=== PATIENT | male | born 1980 ===

== ENCOUNTER 2018-09-07 12:26 | Emergency (ER) | payer MEDICAID ==
--- NOTE | 2018-09-07 12:59 | C.PDOC ---
History Of Present Illness Patient is a 38 yr old male who is c/o flu-like symptoms throughout the week and also c/o pain under his right eye since yesterday. Pt states he has had no energy and has been very stuffy (nasal congestion) thoughout the whole week. He states he has felt feverish the whole week but didn't check his temperature at home. Pt did not get a flu shot this yr. Pt did have a cough a few days ago but that is better now. Pt also w/ a sore throat a couple of days ago but that's improved. The pain located at his right inferior orbit does radiate inferiorly to the maxillary sinus area. No drainage of pus from his right eye and did not wake up with crust at right eye (and eyelids not stuck together upon wakening). Pt has been taking Tylenol throughout the week w/o much effectiveness. Did not take Tylenol today. PMD: None / Time Seen by Provider: 09/07/18 12:41 Chief Complaint (Nursing): Flu-like Symptoms History Per: Patient History/Exam Limitations: no limitations Onset/Duration Of Symptoms: Days Current Symptoms Are (Timing): Still Present Past Medical History Reviewed: Historical Data, Nursing Documentation, Vital Signs Vital Signs: Last Vital Signs Temp 98.1 F 09/07/18 12:34 Pulse 87 09/07/18 12:34 Resp 20 09/07/18 12:34 BP 120/82 09/07/18 12:34 Pulse Ox 99 09/07/18 12:34 - Medical History PMH: Pneumonia Other PMH: Headaches Family History: States: Diabetes, Other Other Family History: Cancer - Social History Hx Tobacco Use: Yes Hx Alcohol Use: No Hx Substance Use: No Review Of Systems Except As Marked, All Systems Reviewed And Found Negative. Constitutional: Positive for: Fever Eyes: Positive for: Pain Cardiovascular: Negative for: Chest Pain Respiratory: Positive for: Cough Gastrointestinal: Negative for: Vomiting Neurological: Positive for: Weakness Physical Exam - Physical Exam Appears: Well, Non-toxic, Toxic Skin: Other (erythema to right lower periorbital area) Head: Atraumatic Eye(s): bilateral: PERRL, EOMI, right: Eyelid Inflammation (lower eyelid inflamed), Other ((+) right lower periorbital edema and right inf bony orbital rim is very tender to touch) Ear(s): Bilateral: Normal Nose: Other ((+) edema of nasal mucosa) Oral Mucosa: Moist Tongue: Normal Appearing Lips: Normal Appearing Teeth: Normal Dentition Gingiva: Normal Appearing Throat: Normal Neck: Normal Lymphatic: Deferred Chest: Symmetrical Cardiovascular: Rhythm Regular Respiratory: Normal Breath Sounds, No Rales, No Rhonchi, No Wheezing Gastrointestinal/Abdominal: Normal Exam, Bowel Sounds, Soft, No Tenderness Rectal: Deferred Back: Normal Inspection Extremity: Normal ROM Extremity: Bilateral: Normal ROM Pulses: Left Radial: Normal, Right Radial: Normal Neurological/Psych: Oriented x3, Normal Motor ED Course And Treatment - Laboratory Results Result Diagrams: 09/07/18 13:06 09/07/18 13:06 O2 Sat by Pulse Oximetry: 99 Medical Decision Making Medical Decision Making: Initial Impression: Right orbital swelling/pain. Differential diagnosis includes but is not limited to: periorbital cellulitis, orbital cellulitis, sinusitis, influenza Initial Plan: Will get labs and check CT Disposition Counseled Patient/Family Regarding: Studies Performed, Diagnosis, Need For Followup, Rx Given - Disposition Referrals: Kunal Peters MD [Staff Provider] - Disposition: HOME/ ROUTINE Disposition Time: 14:56 Condition: STABLE Additional Instructions: Mr. Batista, thank you for letting us take care of you today. Return to the ER if your symptoms worsen, or if any problems. Take the medication listed below as prescribed. Follow up with the [facility] doctor (Dr. Peters). His phone number is listed below to make an appointment. Prescriptions: Amoxicillin/Clavulanate [Augmentin 875 MG-125 MG] 1 tab PO BID #20 tab Ibuprofen [Motrin Tab] 1 tab PO TID PRN #30 tab PRN Reason: Pain, Moderate (4-7) Instructions: Sinusitis in Adults Forms: [employer] (Maori) Print Language: GHANAIAN - POA Present On Arrival: None - Clinical Impression Clinical Impression: Sinusitis, acute
[2018-09-07 13:07] VITALS: RESP 20
[2018-09-07 13:13] LABS: BASO # 0.1 K/uL (0.0-0.2); EOS # 0.4 K/uL (0.0-0.7); EOS % 5.2 % (0.0-4.0); HEMOGLOBIN 15.9 g/dL (12.0-18.0); LYMPH # 1.9 K/uL (1.0-4.3); LYMPH % 25.8 % (20.0-40.0); MEAN CELL VOLUME 81.5 fL (80.0-94.0); MEAN CORPUSCULAR HEMOGLOBIN 27.2 pg (27.0-31.0); MEAN CORPUSCULAR HGB CONC 33.4 g/dL (33.0-37.0); MEAN PLATELET VOLUME 8.7 fL (7.2-11.7); MONO # 0.9 K/uL (0.0-0.8); MONO % 12.9 % (0.0-10.0); NEUT % 55.1 % (50.0-75.0); RBC 5.82 Mil/uL (4.40-5.90); WHITE BLOOD COUNT 7.3 K/uL (4.8-10.8)
[2018-09-07 13:26] LABS: ALB/GLOB RATIO 1.2 (1.0-2.1); ALBUMIN 4.5 g/dL (3.5-5.0); ALT/SGPT 27 U/L (21-72); AST/SGOT 30 U/L (17-59); BLOOD UREA NITROGEN 9 mg/dL (9-20); CALCIUM 9.3 mg/dl (8.6-10.4); GFR NON-AFRICAN AMERICAN > 60
[2018-09-07] MEDS ORDERED: Iodixanol 320 MG/ML 100 ML BOTTLE IV ONE (13:46)
--- NOTE | 2018-09-07 14:51 | CT ---
Date of service: 09/07/2018 PROCEDURE: CT ORBITS WITH CONTRAST. HISTORY: Rt periobit edema;r/o orbit celluitis vs sinusitis COMPARISON: None available. TECHNIQUE: Following administration of intravenous iodinated contrast, axial CT images of the orbits were obtained. Coronal and sagittal reformats were generated. Intravenous contrast dose: 100 mL Visipaque Radiation dose: Total exam DLP = 564.76 mGy-cm. This CT exam was performed using one or more of the following dose reduction techniques: Automated exposure control, adjustment of the mA and/or kV according to patient size, and/or use of iterative reconstruction technique. FINDINGS: RIGHT ORBIT: RIGHT BONY ORBIT: Normal. RIGHT INTRAORBITAL STRUCTURES: Globe: Normal. Extraocular muscles: Normal. Post septal space: Normal. Optic Nerve: Normal. Lacrimal Apparatus: Normal. RIGHT PRESEPTAL SOFT TISSUES: There is mild infraorbital and pre maxillary. LEFT ORBIT: LEFT BONY ORBIT: Normal. LEFT INTRAORBITAL STRUCTURES: Globe: Normal. Extraocular muscles: Normal. Post septal space: Normal. Optic Nerve: Normal. Lacrimal Apparatus: Normal. LEFT PRESEPTAL SOFT TISSUES: Normal. OTHER: There is moderate polypoid mucosal thickening in the left maxillary sinus with aerosolized secretions, moderate mucosal thickening in the ethmoid air cells and mild polypoid mucosal thickening in the left frontal and left sphenoid sinuses. There is also mild polypoid mucosal thickening in the right maxillary sinus. IMPRESSION: 1. Mild right infraorbital and pre maxillary soft tissue swelling which may represent periorbital cellulitis in the appropriate clinical setting. No evidence for postseptal orbital cellulitis. Mild chronic right maxillary sinusitis. 2. Acute and/chronic left maxillary, ethmoid and frontal sinusitis in ostiomeatal obstruction pattern.
[2018-09-07] MEDS ORDERED: Amoxicillin-Clav 875-125 mg Tab PO STA (14:57)
[2018-09-07] MEDS ORDERED: Amoxicillin-Clav 875-125 mg Tab PO ONE (15:12)
[2018-09-07 15:20] VITALS: BP 136/85; PULSE 85; TEMP 98.3; O2SAT 98
== END 2018-09-07 15:18 | disposition home or self-care (01) ==
LOC: C.ER 12:26 → MERGE 12:26 → C.ER 15:18
DX: J01.90 Acute sinusitis, unspecified (principal); Z72.0 Tobacco use
CPT/HCPCS: 70481; 80053; 85025; 87804; 99284; Q9967

== ENCOUNTER 2018-09-08 13:08 | Emergency (ER) | payer MEDICAID ==
[2018-09-08 13:08] VITALS: BMI 30.1
[2018-09-08 13:25] VITALS: RESP 18; TEMP 98.1
[2018-09-08] MEDS ORDERED: Sodium Chloride 0.9% 1,000 ML IV ONE (14:31)
[2018-09-08] MEDS ORDERED: Piperacill/Tazo 4.5gm in Dex 4.5 GM/100 ML BAG IVPB STA (14:32)
[2018-09-08] MEDS ORDERED: Vancomycin 1 gm/NS 200 ml 1 GM/200 ML BAG IVPB STA (14:32)
--- NOTE | 2018-09-08 14:34 | C.PDOC ---
History Of Present Illness 38 yo male w/o significant PMhx come in for evaluation of Right side eye pain associated with periorbital swelling and redness gradually developed for past 3 days. Noted some yellow/greenish discharge. Pt admits, was seen here yesterday, received on Rx: Augmentin, denies taking yet. Otherwise, pt denies fever, chills, headache, dizziness, blurry vision, pain on eye movement, denies neck pain, drooling, toothache, earache, denies contact use, denies known eye trauma or injury, FB sensation, CP, SOB, cough, denies any other active complaints. Ambulate to Ed, not in any apparent distress. Time Seen by Provider: 09/08/18 14:16 Chief Complaint (Nursing): Eye Problem History Per: Patient Past Medical History Reviewed: Historical Data, Nursing Documentation, Vital Signs Vital Signs: Last Vital Signs Temp 98.1 F 09/08/18 13:24 Pulse 89 09/08/18 13:24 Resp 18 09/08/18 13:24 BP 112/79 09/08/18 13:24 Pulse Ox 97 09/08/18 13:24 - Medical History PMH: No Chronic Diseases, Pneumonia Denies: Chronic Kidney Disease Surgical History: No Surg Hx - [facility] Procedures INTRODUCE OF OTH THERAP SUBST INTO RESP TRACT, VIA OPENING (08/02/17) Family History: States: Diabetes Denies: CAD - Social History Hx Tobacco Use: Yes Hx Alcohol Use: Yes Hx Substance Use: Yes - Immunization History Hx Tetanus Toxoid Vaccination: Yes Hx Influenza Vaccination: No Hx Pneumococcal Vaccination: No Review Of Systems Except As Marked, All Systems Reviewed And Found Negative. Constitutional: Negative for: Fever, Chills Eyes: Positive for: Eyelid Inflammation, Redness. Negative for: Vision Change ENT: Negative for: Ear Discharge, Nose Discharge, Nose Congestion, Mouth Swelling Cardiovascular: Negative for: Chest Pain Respiratory: Negative for: Cough, Shortness of Breath, Wheezing Gastrointestinal: Negative for: Nausea, Vomiting, Abdominal Pain Genitourinary: Negative for: Dysuria Musculoskeletal: Negative for: Neck Pain, Back Pain Skin: Negative for: Rash Neurological: Negative for: Weakness, Numbness, Altered Mental Status, Dizziness Physical Exam - Physical Exam Appears: Well, Non-toxic, No Acute Distress Skin: Normal Color, Warm Head: Normacephalic Eye(s): bilateral: PERRL, EOMI (no pain or limitation on extraocular movemnet B/L), right: Other (mod tenderness with palpable induration inf lacrimal canal with extensive periorbital edema and erythema, scant greenish discharge noted.) Ear(s): Bilateral: Normal Nose: No Flaring, No Discharge Oral Mucosa: Moist Tongue: Normal Appearing Lips: Normal Appearing Teeth: No Tender To Palpation Gingiva: No Abscess Throat: No Erythema, No Drooling Neck: Trachea Midline, Supple Cardiovascular: Rhythm Regular, No Murmur, No JVD Respiratory: No Decreased Breath Sounds, No Accessory Muscle Use, No Stridor, No Wheezing Gastrointestinal/Abdominal: Soft, No Tenderness, No Distention, No Guarding Extremity: Normal ROM, No Deformity, No Swelling Neurological/Psych: Oriented x3, Normal Speech ED Course And Treatment - Laboratory Results Result Diagrams: 09/08/18 14:53 09/08/18 14:53 Lab Interpretation: No Acute Changes O2 Sat by Pulse Oximetry: 97 Pulse Ox Interpretation: Normal - CT Scan/US CT Right orbit Other Rad Studies (CT/US): Radiology Report Reviewed CT/US Interpretation: Dictator : Marnie Andersen MD. Wharf Tender Helper : Public Weigher : Marnie Andersen MD. Approver2 : Report Date : 09/07/2018 14:25:08. My Comment : . Date of service: 09/07/2018. PROCEDURE: CT ORBITS WITH CONTRAST. HISTORY: Rt periobit edema;r/o orbit celluitis vs sinusitis. COMPARISON: None available. TECHNIQUE: Following administration of intravenous iodinated contrast, axial CT images of the orbits were obtained. Coronal and sagittal reformats were generated. Intravenous contrast dose: 100 mL Visipaque. Radiation dose: Total exam DLP = 564.76 mGy-cm. This CT exam was performed using one or more of the following dose reduction techniques: Automated exposure control, adjustment of the mA and/or kV according to patient size, and/or use of iterative reconstruction technique. FINDINGS: RIGHT ORBIT: RIGHT BONY ORBIT: Normal. RIGHT INTRAORBITAL STRUCTURES: Globe: Normal. Extraocular muscles: Normal. Post septal space: Normal. Optic Nerve: Normal. Lacrimal Apparatus: Normal. RIGHT PRESEPTAL SOFT TISSUES: There is mild infraorbital and pre maxillary. LEFT ORBIT: LEFT BONY ORBIT: Normal. LEFT IN TRAORBITAL STRUCTURES: Globe: Normal. Extraocular muscles: Normal. Post septal space: Normal. Optic Nerve: Normal. Lacrimal Apparatus: Normal. LEFT PRESEPTAL SOFT TISSUES: Normal. OTHER: There is moderate polypoid mucosal thickening in the left maxillary sinus with aerosolized secretions, moderate mucosal thickening in the ethmoid air cells and mild polypoid mucosal thickening in the left frontal and left sphenoid sinuses. There is also mild polypoid mucosal thickening in the right maxillary sinus. IMPRESSION: 1. Mild right infraorbital and pre maxillary soft tissue swelling which may represent periorbital cellulitis in the appropriate clinical setting. No evidence for postseptal orbital cellulitis. Mild chronic right maxillary sinusitis. 2. Acute and/chronic left maxillary, ethmoid and frontal sinusitis in ostiomeatal obstruction pattern. Progress Note: Case discussed with Opht , results of blood work and CT Right orbit from 09/07/18 review, recommend discharge with outpt f/u now. Pt was OBS in ED for 3 hours and reports moderate improvement in sx. on re-eval, pt is afebrile, hemodynamicaly stable. Non-toxic, tolerate Po well in ED. Right eye: mild improvement periorbital edema and erythema. No pain or limitation on extraocular movement. ENT: no acute findings. neck: Supple, (-) carodid bruits B/L. Lungs: CTA B/L, BS equal B/L. neurologicaly intact. Blood work review and appears without acute abnormalities, no acute leukocytosis or left shift. Pt rceived Zosyn vanco today. Blood cx-pending. Pt has clinical findings c/w Right periorbital celluliits. Pt advised to F/U with now for further evaluation. Continue antibiotic as intiated yesterday ( AUgmentin). return if any new changes. Disposition Counseled Patient/Family Regarding: Studies Performed, Diagnosis, Need For Followup, Rx Given - Disposition Referrals: Floyd Weaver [Staff Provider] - Disposition: HOME/ ROUTINE Disposition Time: 14:34 Condition: STABLE Additional Instructions: FOLLOW UP WITH NOW FOR FURTHER EVALUATION AND TREATMENT Take antibiotic as initiated yesterday ( Augmentin) Take medication as prescribed Return to ED at any time if any worsening or new changes. Prescriptions: Prednisone [Deltasone] 60 mg PO DAILY #9 tablet Instructions: Orbital Cellulitis Forms: [employer] (Turkmen) - Clinical Impression Clinical Impression: Periorbital cellulitis of right eye
[2018-09-08] MEDS ORDERED: Piperacillin/Tazobact 3.375 gm 0 ML IVPB ONE (14:49)
[2018-09-08 14:57] LABS: BASO # 0.1 K/uL (0.0-0.2); BASO % 1.1 % (0.0-2.0); EOS # 0.6 K/uL (0.0-0.7); EOS % 9.9 % (0.0-4.0); HEMOGLOBIN 15.6 g/dL (12.0-18.0); LYMPH # 1.7 K/uL (1.0-4.3); LYMPH % 30.8 % (20.0-40.0); MEAN CELL VOLUME 82.1 fL (80.0-94.0); MEAN CORPUSCULAR HEMOGLOBIN 26.8 pg (27.0-31.0); MEAN CORPUSCULAR HGB CONC 32.6 g/dL (33.0-37.0); MEAN PLATELET VOLUME 8.8 fL (7.2-11.7); MONO # 0.9 K/uL (0.0-0.8); MONO % 15.5 % (0.0-10.0); NEUT # 2.4 K/uL (1.8-7.0); NEUT % 42.7 % (50.0-75.0); NRBC % 0.1 % (0.0-2.0); RBC 5.83 Mil/uL (4.40-5.90); RED CELL DISTRIBUTION WIDTH 14.2 % (11.5-14.5); WHITE BLOOD COUNT 5.6 K/uL (4.8-10.8)
[2018-09-08 15:09] LABS: BLOOD UREA NITROGEN 10 mg/dL (9-20); CALCIUM 9.3 mg/dl (8.6-10.4); GFR NON-AFRICAN AMERICAN > 60
[2018-09-08 17:59] VITALS: BP 121/74; PULSE 87; O2SAT 98
== END 2018-09-08 18:21 | disposition home or self-care (01) ==
LOC: C.ER 13:08
DX: L03.213 Periorbital cellulitis (principal)
CPT/HCPCS: 80048; 85025; 87040; 96374; 96375; 99283; J2270; J2930; J3370; J7030